=== PATIENT | female | born 1970 ===

== ENCOUNTER 2018-03-24 02:58 | Emergency (ER) | payer OTHER, SELFPAY ==
[2018-03-24] VITALS (34 sets, daily range): BP systolic 91–135; BP diastolic 50–97; PULSE 65–90; RESP 10–25; TEMP 36.9; O2SAT 93–100
--- NOTE | 2018-03-24 03:07 | DI.RAD_ITS ---
SYMPTOMS/DIAGNOSIS: CHEST PAIN PA AND LATERAL CHEST: There are no prior comparison exams. The heart size is normal. The lungs appear clear. There are a few calcified granulomas in the left upper lobe. No infiltrate, effusion or pneumothorax is seen. IMPRESSION: Old granulomatous disease. No acute abnormality.
--- NOTE | 2018-03-24 03:08 | W.ED.GENAD ---
Discharge Plan Disposition Patient Disposition: HOME Condition: Stable Discharge Details Chief Complaint: Chest Pain Clinical Impression: Chest pain Primary Care Provider: Ophelia,Local ED Provider: Giancarlo Mcneil Home Meds and New Rx's Prescriptions: New lorazepam 1 mg tablet 1 mg PO Q6H PRN (Reason: muscle spasm) Qty: 20 RF: 0 Continued clonazepam 0.5 mg Tablet 0.5 mg PO PRN PRNRF: 0 topiramate 50 mg Tablet 50 mg PO HS RF: 0 eszopiclone 2 mg Tablet 2 mg PO PRN PRNRF: 0 Discharge Instructions Instructions: Chest Pain (ED) Additional Instructions: your eks and blood word did not show any evidence of a heart attack this pain could be form a muscle wall strain, you can take 1000mg tylenol and 600mg ibuprofen every 6 hours for pain as needed If you have severe worsening pain, nausea/vomit, or become sweaty return to the emergency department. Follow up with your primary care provider within 1-2 weeks and discuss having stress testing Medical Decision Making 47 yo female with hx of migarines, no smoking hx or cardiac disease comes in with chief complaint of chest pain starting about 2 horus ago and is localized to the left side of his chest. She states deep breaths increase the pain, denies pain with exertion. NO recent immobilization. HEARt score is 1, will send troponin and obtain ecg. Normal vascuar exam and no tearing back pain so doubt dissection. Wells score low, will send d dimer to evaluate for pe. Will obtain cxr to eval for ptx labs and imaging unremarkable, she feels much better. Will obtain delta troponin and ecg and if unchanged will have her f/u with pcp pt remains stable, feels better after she requested something for anxiety and ativan helped. second troponin and ekg unremarkable. Will d/c home and advised f/u with pcp, she is requesting prescription for muscle relaxer/anxiety. Advised to return if any worsening or new symptoms Differential Diagnosis nstemi, pe, ptx, pna Imaging Data Radiologic Study: Attestation: I personally reviewed and interpreted this imaging study as follows: Imaging: X-Ray Radiologist's impression: IMPRESSION: No acute findings. Old granulomatous disease. Lab Data Lab results reviewed: Yes I reviewed the patient's lab results. ECG Data Attestation: I personally reviewed and interpreted this ECG (s) as follows: Prior ECG tracings: not available for review Interpretation: sinus rhythm, rate of 77, pr 152, qtc 384, no acute st t wave ischemic findings 2nd ekg shows sinus rhythm, rate of 76, no acute st t wave changes HPI General Mode of arrival: EMS. Date/Time Provider Initiated Documentation: 03/24/18 03:03. Limitations to Documentation: no limitations. Information obtained by: patient. History of Present Illness 47 year old F presents to the emergency department with the chief complaint of chest pain, described as moderate, Quality is described as stabbing and aching, and is localized to the chest. Patient reports no radiation. Patient started experiencing this hour(s) (2) and it has been constant. No relieving factors improve symptom(s), Other factors that worsen symptoms (deep breaths) . Patient notes no other symptoms.. Patient did receive the following treatments prior to arrival, none Related Data Home Medications Medication Instructions Recorded Confirmed clonazepam 0.5 mg PO PRN PRN 03/24/18 03/24/18 eszopiclone 2 mg PO PRN PRN 03/24/18 03/24/18 lorazepam 1 mg PO Q6H PRN #20 tab 03/24/18 topiramate 50 mg PO HS 03/24/18 03/24/18 Previous Rx's Medication Instructions Recorded lorazepam 1 mg PO Q6H PRN #20 tab 03/24/18 Allergies Allergy/AdvReac Type Severity Reaction Status Date / Time Iodinated Contrast- Oral and AdvReac Intermediate Unverified 03/24/18 03:24 IV Dye Review of Systems Review of Systems All systems reviewed & are unremarkable except as noted in HPI and below Constitutional Denies chills and Denies fever(s) Eyes Denies loss of vision ENT Denies change in voice Gastrointestinal Denies abdominal pain, Denies nausea and Denies vomiting Musculoskeletal Denies joint swelling Neurologic Denies loss of vision PFSH Social History Smoking/Tobacco Use Status: Never Exam Const General: no acute distress Orientation: alert [facility] Head: normal to inspection Ears: external ears normal General nose exam: external nose normal Mouth: moist mucous membranes Eyes General: appearance normal, both eyes and all related structures Neck Neck: normal visual inspection Resp Effort & Inspection: normal respiratory effort and able to speak in complete sentences Cardio Rate: regular rate Skin General skin exam: no rashes or lesions noted Neuro General: alert and oriented x3 Extrem General: normal to inspection Psych Mental Status: mental status grossly normal
--- NOTE | 2018-03-24 03:11 | ED.GENADUL_ITS ---
Discharge Plan Disposition Patient Disposition: HOME Condition: Stable Discharge Details Chief Complaint: Chest Pain Clinical Impression: Chest pain Primary Care Provider: Ophelia,Local ED Provider: Giancarlo Mcneil Home Meds and New Rx's Prescriptions: New lorazepam 1 mg tablet 1 mg PO Q6H PRN (Reason: muscle spasm) Qty: 20 RF: 0 Continued clonazepam 0.5 mg Tablet 0.5 mg PO PRN PRNRF: 0 topiramate 50 mg Tablet 50 mg PO HS RF: 0 eszopiclone 2 mg Tablet 2 mg PO PRN PRNRF: 0 Discharge Instructions Instructions: Chest Pain (ED) Additional Instructions: your eks and blood word did not show any evidence of a heart attack this pain could be form a muscle wall strain, you can take 1000mg tylenol and 600mg ibuprofen every 6 hours for pain as needed If you have severe worsening pain, nausea/vomit, or become sweaty return to the emergency department. Follow up with your primary care provider within 1-2 weeks and discuss having stress testing Medical Decision Making 47 yo female with hx of migarines, no smoking hx or cardiac disease comes in with chief complaint of chest pain starting about 2 horus ago and is localized to the left side of his chest. She states deep breaths increase the pain, denies pain with exertion. NO recent immobilization. HEARt score is 1, will send troponin and obtain ecg. Normal vascuar exam and no tearing back pain so doubt dissection. Wells score low, will send d dimer to evaluate for pe. Will obtain cxr to eval for ptx labs and imaging unremarkable, she feels much better. Will obtain delta troponin and ecg and if unchanged will have her f/u with pcp pt remains stable, feels better after she requested something for anxiety and ativan helped. second troponin and ekg unremarkable. Will d/c home and advised f/u with pcp, she is requesting prescription for muscle relaxer/anxiety. Advised to return if any worsening or new symptoms Differential Diagnosis nstemi, pe, ptx, pna Imaging Data Radiologic Study: Attestation: I personally reviewed and interpreted this imaging study as follows: Imaging: X-Ray Radiologist's impression: IMPRESSION: No acute findings. Old granulomatous disease. Lab Data Lab results reviewed: Yes I reviewed the patient's lab results. ECG Data Attestation: I personally reviewed and interpreted this ECG (s) as follows: Prior ECG tracings: not available for review Interpretation: sinus rhythm, rate of 77, pr 152, qtc 384, no acute st t wave ischemic findings 2nd ekg shows sinus rhythm, rate of 76, no acute st t wave changes HPI General Mode of arrival: EMS . Date/Time Provider Initiated Documentation: 03/24/18 03:03 . Limitations to Documentation: no limitations . Information obtained by: patient . History of Present Illness 47 year old F presents to the emergency department with the chief complaint of chest pain, described as moderate, Quality is described as stabbing and aching, and is localized to the chest. Patient reports no radiation. Patient started experiencing this hour(s) (2) and it has been constant. No relieving factors improve symptom(s), Other factors that worsen symptoms (deep breaths) . Patient notes no other symptoms.. Patient did receive the following treatments prior to arrival, none Related Data Home Medications Medication Instructions Recorded Confirmed clonazepam 0.5 mg PO PRN PRN 03/24/18 03/24/18 eszopiclone 2 mg PO PRN PRN 03/24/18 03/24/18 lorazepam 1 mg PO Q6H PRN #20 tab 03/24/18 topiramate 50 mg PO HS 03/24/18 03/24/18 Previous Rx's Medication Instructions Recorded lorazepam 1 mg PO Q6H PRN #20 tab 03/24/18 Allergies Allergy/AdvReac Type Severity Reaction Status Date / Time Iodinated Contrast- Oral and AdvReac Intermediate Unverified 03/24/18 03:24 IV Dye Review of Systems Review of Systems All systems reviewed & are unremarkable except as noted in HPI and below Constitutional Denies chills and Denies fever(s) Eyes Denies loss of vision ENT Denies change in voice Gastrointestinal Denies abdominal pain, Denies nausea and Denies vomiting Musculoskeletal Denies joint swelling Neurologic Denies loss of vision PFSH Social History Smoking/Tobacco Use Status: Never Exam Const General: no acute distress Orientation: alert [facility] Head: normal to inspection Ears: external ears normal General nose exam: external nose normal Mouth: moist mucous membranes Eyes General: appearance normal, both eyes and all related structures Neck Neck: normal visual inspection Resp Effort & Inspection: normal respiratory effort and able to speak in complete sentences Cardio Rate: regular rate Skin General skin exam: no rashes or lesions noted Neuro General: alert and oriented x3 Extrem General: normal to inspection Psych Mental Status: mental status grossly normal
[2018-03-24] MEDS: Aspirin 81 MG CHEW 324 MG CH (03:29)
[2018-03-24 03:46] LABS: Abs Immature Grans 0.03 k/cumm (0.0-0.09); Absolute Basophil Count 0.02 k/cumm (0.0-0.2); Absolute Eosinophil Count 0.22 k/cumm (0.0-0.7); Absolute Lymphocyte Count 3.89 k/cumm (1.2-3.4); Absolute Neutrophil Count 4.86 k/cumm (1.2-6.7); Basophils % 0.2; Eosinophils % 2.3; HCT 38.7 % (36.0-46.0); HGB 13.3 g/dL (12.0-15.5); Immature Grans % 0.3; Lymphocytes % 40.4; Mean Corp. HGB Concentration 34.4 g/dL (32.0-36.0); Mean Corpuscular Hemoglobin 33.3 pg (27.0-33.0); Mean Platelet Volume 9.6 fL (8.0-11.0); Monocytes % 6.2; Neutrophils % 50.6; Platelet Count 254 x1000/uL (130-400); RBC 3.99 m/cumm (4.00-5.20); RBC Distribution Width 11.8 % (11.7-14.6); White Blood Cell Count 9.62 k/cumm (4.4-10.8)
--- NOTE | 2018-03-24 03:50 | DI.VRAD_ITS ---
EXAM: XR Chest, 2 Views EXAM DATE/TIME: 03/24/2018 3:08 AM CLINICAL HISTORY: 47 years old, female; Pain; Chest pain TECHNIQUE: XR of the chest, 2 views. COMPARISON: No relevant prior studies available. FINDINGS: Lungs: Unremarkable. No consolidation. Calcified granulomas. Pleural space: Unremarkable. No evidence of pneumothorax. Heart/Mediastinum: Unremarkable. Heart size within normal limits for technique. Calcified granulomas. Bones/joints: Unremarkable. IMPRESSION: No acute findings. Old granulomatous disease. Dictated and Authenticated by: Aurelio Martin MD. Ordering:LON Mondragon MD
[2018-03-24] MEDS: fentaNYL 100 MCG/2 ML VIAL (03:58)
[2018-03-24] MEDS: Normal Saline Flush 10 ML SYR IVP (03:59)
[2018-03-24 04:02] LABS: ALT 25 U/L (12-78); AST 20 U/L (15-37); Albumin 3.9 g/dL (3.4-5.0); Alkaline Phosphatase 101 U/L (46-116); Anion Gap 8.7 mmol/L (3-11); BUN 12 mg/dL (7-18); Bilirubin, Total 0.2 mg/dL (0.2-1.0); CO2 23.3 mmol/L (21.0-32.0); CREATININE 0.91 mg/dL (0.55-1.02); Calcium 8.3 mg/dL (8.5-10.1); Chloride 105 mmol/L (98-107); Glucose 88 mg/dL (70-100); Magnesium 2.2 mg/dL (1.8-2.4); Potassium 3.3 mmol/L (3.5-5.1); Sodium 137 mmol/L (136-145); Total Protein 7.4 g/dL (6.4-8.2)
[2018-03-24 04:03] LABS: Troponin I < 0.02 ng/mL (0.00-0.06)
[2018-03-24 04:07] LABS: INR 0.9 (1.0-3.5); PTT Activated 21.9 sec (21.0-31.4); Prothrombin Time 9.3 sec (9.3-11.0)
[2018-03-24 04:44] LABS: D-Dimer 172 ng/mlFEU (<500)
[2018-03-24] MEDS: LORazepam 0.5 MG TAB PO (05:36)
[2018-03-24 05:58] LABS: Troponin I < 0.02 ng/mL (0.00-0.06)
== END 2018-03-24 06:22 | disposition home or self-care (01) ==
PROVIDERS: Emergency Provider Emergency Medicine
DX: R07.9 Chest pain, unspecified (principal)
CPT/HCPCS: 36415; 80053; 93005; 96374; 99285; 71046; 83735; 84484; 85025; 85379; 85610; 85730; 93010; J3010; J3490